=== PATIENT | female | born 1940 | race Caucasian/White ===

== ENCOUNTER 2017-03-15 21:57 | Emergency (ER) | payer MEDICARE, OTHER ==
[~2017-03-15] VITALS: Ht 157.5 cm; Wt 59.0 kg
[2017-03-15 22:34] VITALS: BP_SYST 195
[2017-03-16 02:44] VITALS: BP_SYST 168
== END 2017-03-16 02:44 | disposition home or self-care (01) ==
LOC: SED 21:57
DX: I83.93 Asymptomatic varicose veins of bilateral lower extremities (principal); Z88.0 Allergy status to penicillin; I10 Essential (primary) hypertension
CPT/HCPCS: 93971; 99284

== ENCOUNTER 2018-06-06 17:00 | Inpatient (IN) | payer MEDICARE ==
[~2018-06-06] VITALS: Ht 157.5 cm; Wt 63.0 kg
[2018-06-06 17:08] VITALS: BP_SYST 160; BP_SYST 196
--- NOTE | 2018-06-06 17:11 | NUR ---
Patient to ER bed 08 to gown for evaluation. Side rails up. Report given to AMERICO Yanez
--- NOTE | 2018-06-06 17:15 | NUR ---
Pt AAOx4 BIB BLS c/o generalized weakness x 1 hour accompanying tingling to L hand/QUEEN/N. Skin pink dry and warm, speaking in full sentences. No other injuries/complaints per pt/noted. Will continue to monitor.
--- NOTE | 2018-06-06 17:28 | NUR ---
ER Dr. Rapp at bedside examining patient.
[2018-06-06] MEDS ORDERED: cloNIDine HCL 0.1 MG TABLET PO ONE (17:45)
[2018-06-06] MEDS ORDERED: NACL 0.9% 1,000 ML IV ONE ×2 (17:45)
[2018-06-06 18:05] LABS: BILIRUBIN,URINE NEGATIVE (NEGATIVE); CLARITY/URINE CLEAR (CLEAR); COLOR,URINE YELLOW (YELLOW); GLUCOSE,URINE NEGATIVE (NEGATIVE); KETONES,URINE NEGATIVE (NEGATIVE); LEUKOCYTE ESTERASE ,URINE 1+ (NEGATIVE); NITRITE, URINE POSITIVE (NEGATIVE); PROTEIN URINE TRACE (NEGATIVE); UROBILINOGEN,URINE 0.2 (0.2-1.0)
[2018-06-06 18:06] LABS: BLOOD, URINE TRACE (NEGATIVE)
[2018-06-06 18:12] LABS: BACTERIA,URINE MODERATE /HPF (None Seen); RBC,URINE 0-3 /HPF (0-3)
--- NOTE | 2018-06-06 18:20 | NUR ---
PT resting comfortably in bed with no signs of distress
[2018-06-06] MEDS ORDERED: LEVOFLOXACIN 500 MG/D5W 100 ML IV ONE (18:30)
[2018-06-06 18:41] LABS: ANION GAP 8 (5-15); CALCIUM 9.2 mg/dL (8.4-11.0); CHLORIDE 102 mmol/L (98-107); CREATININE 1.19 mg/dL (0.55-1.30); GLUCOSE 101 mg/dL (70-99); POTASSIUM 3.6 mmol/L (3.5-5.1); SODIUM SERUM 138 mmol/L (136-145); UREA NITROGEN, BLOOD 20 mg/dL (8-21)
[2018-06-06 18:50] LABS: ALANINE AMINOTRANSFERASE 20 U/L (12-78); ALBUMIN 3.8 g/dL (3.4-4.8); ASPARTATE AMINOTRANSFERASE 22 U/L (10-37); TOTAL BILIRUBIN 0.6 mg/dL (0.0-1.0)
[2018-06-06 18:54] LABS: BASOPHILS # (AUTO) 0.2 K/uL (0.0-0.2); BASOPHILS % (AUTO) 2.1 % (0.0-2.0); EOSINOPHILS # (AUTO) 0.2 K/uL (0.0-0.4); EOSINOPHILS % (AUTO) 2.1 % (0.0-4.0); HEMATOCRIT 47.3 % (36-48); HEMOGLOBIN 15.9 g/dL (12.0-16.0); LYMPHOCYTES # (AUTO) 1.3 K/uL (1.0-5.5); LYMPHOCYTES % (AUTO) 11.9 % (20.5-51.5); MEAN CORPUSCULAR HEMOGLOBIN 33 pg (27-31); MEAN CORPUSCULAR HGB CONC 34 % (32-36); MEAN CORPUSCULAR VOLUME 97 fL (79.0-98.0); MONOCYTES # (AUTO) 0.7 K/uL (0.0-1.0); NEUTROPHILS # (AUTO) 8.9 K/uL (1.8-7.7); NEUTROPHILS % (AUTO) 77.9 % (40.0-70.0); PLATELET COUNT (AUTO) 353 K/uL (130-430); RED BLOOD CELL COUNT(AUTO) 4.86 MIL/uL (4.2-6.2); RED CELL DISTRIBUTION WIDTH 14.1 % (9.0-15.0); WHITE BLOOD COUNT (AUTO) 11.3 K/uL (4.8-10.8)
[2018-06-06] MEDS ORDERED: METOPROLOL TARTRATE 5 MG/5 ML VIAL IVP ONE ×2 (19:15→19:30)
[2018-06-06] MEDS ORDERED: NITROGLYCERIN 1 INCH (GM) OINT. TP ONE (19:15)
[2018-06-06] MEDS ORDERED: KETOROLAC TROMETHAMINE 15 MG VIAL IVP ONE (19:15)
[2018-06-06] MEDS ORDERED: cloNIDine HCL 0.2 MG TABLET PO PRN (19:30)
--- NOTE | 2018-06-06 19:37 | NUR ---
Pt assisted to restroom with steady gait.
[2018-06-06 19:50] VITALS: BP_SYST 161
--- NOTE | 2018-06-06 19:50 | NUR ---
ADMISSION NOTE Received patient from ER via gurney. Patient admitted with diagnosis of NSTEMI. Patient is awake, alert, oriented X 4. Patient oriented to hospital room, call light, toileting, pain management and safety-teach back done. Patient informed that AMERICO Rubio will be primary nurse and that their room number is 103B. Personal belongings checked and Belongings List documented. Call light within reach.
--- NOTE | 2018-06-06 20:04 | NUR ---
Patient will be admitted to [facility]. Admitted to Telemetry unit. Will go to room 103B. Belongings list completed. Summary report printed. Report will be given at bedside.
--- NOTE | 2018-06-06 20:44 | NUR ---
CONSULT DR. 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 REASON FOR CONSULT: TEIN DR. PEARCE REQUEST THE CONSULT [facility] MONITOR PHONE NUMBER: [phone] I CALLED [employer] TO FIND OUT HOW IS PSYCHIATRIC SECRETARY I SPOKE WITH [employer]. SHE SAID DR. FALL PSYCHIATRIC SECRETARY ERNA.
--- NOTE | 2018-06-06 21:55 | NUR ---
Initial RN notes Pt AAOx4, pt eating sandwich at this time. Pt denies any pain. BP 158/77 HR 71. No acute distress noted. Pt ambulated to the bathroom with quad cane, steady gait, denies any dizziness or sob. Call light/items within reach. Will continue to monitor.
[2018-06-06 22:06] VITALS: BP_SYST 158
[2018-06-06] MEDS ORDERED: ACETAMINOPHEN 325 MG TABLET PO PRN (23:00)
--- NOTE | 2018-06-06 23:10 | NUR ---
Dr. Mcmanus here to see pt.
[2018-06-06] MEDS ORDERED: ONDANSETRON HCL 4 MG/2 ML VIAL IVP PRN (23:15)
[2018-06-06] MEDS ORDERED: TEMAZEPAM 15 MG CAPSULE PO PRN (23:15)
[2018-06-06] MEDS ORDERED: ENOXAPARIN SODIUM 60 MG/0.6 ML SYRINGE SUBCUT SCH (23:30)
[2018-06-06] MEDS ORDERED: CARVEDILOL 12.5 MG TABLET (COREG) PO SCH (23:30)
[2018-06-07] VITALS (7 sets, daily range): BP systolic 145–165
--- NOTE | 2018-06-07 00:15 | NUR ---
Refused med Pt asleep, easily arousable. Pt refused BP med and Lovenox x 1 order.
--- NOTE | 2018-06-07 01:10 | NUR ---
Ambulated to bathroom Pt awake, called to use the bathroom. Pt assisted and used the bathroom. VSS. IVF completed, IV saline locked R. FA 20G. Call light within reach. Safety measures in place. Bed alarm on. To monitor. Addendum: 06/07/18 at 0120 by Joanne Pacheco RN Pt states L. arm weakness feels better now.
--- NOTE | 2018-06-07 03:45 | NUR ---
Pt refused bed alarm on Pt encouraged to call for assistance out of bed. Pt verbalized understanding. Call light within reach.
--- NOTE | 2018-06-07 06:40 | NUR ---
Closing notes/Refused CXR Pt alert, awake, no acute distress noted. Pt upset about the blood draw this am and how it hurts so much. Pt refused the Chest Xray this am. Pt states she just wants to go home. IV lock R. forearm 20G on forearm. Call light within reach. Bed low, locked side rail x2 up. To endorse to AM nurse.
--- NOTE | 2018-06-07 07:45 | NUR ---
opening note patient is resting in bed eating her breakfast, A&Ox4, assessment completed, IV line patent and intact, educated gate person light system and on blood pressure management, patient verbalized understanding, patient is refusing morning medications after education on medication uses and benefits, will follow up to see if she changes her mind, no other needs at this time, bed at the lowest position, two side rails up, call light within reach, fall/aspiration/allergy precautions in place.
[2018-06-07 07:51] LABS: INR 1.1 (0.8-1.2)
[2018-06-07 07:54] LABS: ANION GAP 10 (5-15); BASOPHILS # (AUTO) 0.1 K/uL (0.0-0.2); BASOPHILS % (AUTO) 1.3 % (0.0-2.0); CALCIUM 8.3 mg/dL (8.4-11.0); CHLORIDE 105 mmol/L (98-107); CREATININE 0.94 mg/dL (0.55-1.30); EOSINOPHILS # (AUTO) 0.1 K/uL (0.0-0.4); EOSINOPHILS % (AUTO) 0.8 % (0.0-4.0); GLUCOSE 89 mg/dL (70-99); HEMATOCRIT 45.7 % (36-48); HEMOGLOBIN 14.6 g/dL (12.0-16.0); LYMPHOCYTES # (AUTO) 0.9 K/uL (1.0-5.5); LYMPHOCYTES % (AUTO) 10.8 % (20.5-51.5); MEAN CORPUSCULAR HEMOGLOBIN 31 pg (27-31); MEAN CORPUSCULAR HGB CONC 32 % (32-36); MEAN CORPUSCULAR VOLUME 98 fL (79.0-98.0); MONOCYTES # (AUTO) 0.5 K/uL (0.0-1.0); MONOCYTES % (AUTO) 6.3 % (1.7-9.3); NEUTROPHILS # (AUTO) 6.8 K/uL (1.8-7.7); NEUTROPHILS % (AUTO) 80.8 % (40.0-70.0); PLATELET COUNT (AUTO) 410 K/uL (130-430); POTASSIUM 3.8 mmol/L (3.5-5.1); RED BLOOD CELL COUNT(AUTO) 4.65 MIL/uL (4.2-6.2); RED CELL DISTRIBUTION WIDTH 13.9 % (9.0-15.0); SODIUM SERUM 139 mmol/L (136-145); UREA NITROGEN, BLOOD 15 mg/dL (8-21); WHITE BLOOD COUNT (AUTO) 8.4 K/uL (4.8-10.8)
[2018-06-07 08:10] LABS: ALANINE AMINOTRANSFERASE 18 U/L (12-78); ASPARTATE AMINOTRANSFERASE 22 U/L (10-37); FREE T4 (FREE THYROXINE) 1.1 ng/dl (0.8-1.5); THYROID STIMULATING HORMONE 1.47 uIu/mL (0.36-3.74); TOTAL BILIRUBIN 0.6 mg/dL (0.0-1.0)
--- NOTE | 2018-06-07 08:31 | NUR ---
Dr Teresa landeros in regards to troponin. Addendum: 06/07/18 at 0834 by Laury Moran RN Dr Moore [id number] informed of troponin, no orders at this time.
[2018-06-07] MEDS: CARVEDILOL 12.5 MG TABLET (COREG) PO SCH ×2 (09:00→20:44)
[2018-06-07] MEDS ORDERED: ASPIRIN 81 MG TABLET(ECOTRIN) PO SCH (09:00)
[2018-06-07] MEDS: ENOXAPARIN SODIUM 60 MG/0.6 ML SYRINGE SUBCUT SCH ×2 (09:00→20:44)
[2018-06-07] MEDS ORDERED: NITROFURANTOIN MONOHYD/M-CRYST 100 MG CAPSULE PO SCH (09:00)
--- NOTE | 2018-06-07 09:05 | NUR ---
Dr Teresa king assessed patient in the room, made aware of the patient's refusal for medications and chest x-ray, patient said yes to doing an echo.
--- NOTE | 2018-06-07 09:15 | NUR ---
echocardiogram in patient room.
--- NOTE | 2018-06-07 09:40 | NUR ---
Patient refused EKG informed Dr. Moore at nursing station.
--- NOTE | 2018-06-07 11:10 | NUR ---
patient is resting in bed, visitor present at the bedside, patient states that she wants to be discharge since she is refusing all tests and medications, I asked her if she would like to wait for the primary physician to see her first, patient states that she does not want to wait for him, I educated her on AMA and patient states that she did not want to sign it in fear that her insurance will not pay for her hospital stay, patient states she will call her insurance. bed at the lowest position, two side rails up, cane within reach, fall and aspiration precautions in place.
[2018-06-07 13:10] LABS: CHOLESTEROL 210 mg/dL (<200); HDL CHOLESTEROL 64 mg/dL (>55); TRIGLYCERIDES 59 mg/dL (30-150)
[2018-06-07 13:11] LABS: LDL CHOLESTEROL 128 mg/dL (<100)
--- NOTE | 2018-06-07 14:12 | NUR ---
Patient SW patient extensively today. During initial rounds, pt verbalized that she wants to go home and that nothing is wrong with her. I informed her that the MD will do rounds today and evaluate and examine her. Dr Moore saw the patient and immediately after, patient stated that she wants to go home again, that we cannot keep her hostage and that the hospital only wants the insurance money. I explained to the patient that we do not keep patient againts their will, that she can leave anytime after signing the AMA form. Patient called her insurance and after finding out from the insurance will not pay her stay , patient decided to wait for the doctor. Addendum: 06/07/18 at 1420 by Karime Yu RN will not PAY HER STAY IF SHE SIGNS THE AMA FORM.
[2018-06-07] MEDS ORDERED: ATORVASTATIN 20 MG TABLET PO ONE (14:15)
--- NOTE | 2018-06-07 14:51 | NUR ---
RN Rounds patient resting in bed, awake, speaking with Crop Pest Control Specialist, Awa, at bedside. Continuing to monitor the patient.
--- NOTE | 2018-06-07 15:15 | NUR ---
Case management spoke to case management about patient, CM talked to patient about her stay and plan of care and potential plans for when she gets discharged.
--- NOTE | 2018-06-07 15:33 | NUR ---
refused medication patient is sitting on the edge of the bed, educated on the scheduled lipitor uses and benefits, patient refused medication, no other needs at this time, bed at the lowest position, two side rails up, cane within reach, call light within reach, bed close to nurse station, fall and aspiration precautions in place.
--- NOTE | 2018-06-07 15:52 | NUR ---
DC Planning: Updated Shannen at [facility] IPA the dcp for tomorrow either dc to home with HH safety eval vs. transfer to net work if need intervention. Troponin positive x2. EF 70%, pt. still c/o some numbness to her left arm, elevated sbp 150-160's.
--- NOTE | 2018-06-07 16:48 | NUR ---
I WAS ASKED BY CHARGE NURSE MADINA TO CALL [facility], RE: PT AGREED TO TRANSFER TO [facility] AFTER BEING CONVINCED BY PRIMARY MD DR PEARCE FOR N STEMI. SPOKE TO RANDALL WHO WILL ARRANGE AND FIND BED FOR THE PT TODAY.
--- NOTE | 2018-06-07 17:20 | NUR ---
rounds patient is resting in bed, patient stating that she is still going to refuse medications and radiology test despite education on the benefits of it, no needs at this time, bed at the lowest position, two side rails up, cane within reach, call light within reach, patient refuses bed alarm despite educating her on the use for it, bed close to nurse station, fall/aspiration/allergy precautions in place.
--- NOTE | 2018-06-07 18:40 | NUR ---
closing note patient is resting in bed and eating her dinner, IV line flushed per patient request, all needs met for this shift, will endorse report to noc shift nurse, bed at the lowest position, two side rails up, call light within reach, fall and aspiration precautions in place, bed close to nurse station, patient refused bed alarm despite education on benefits.
[2018-06-07] MEDS ORDERED: ASPIRIN 81 MG TABLET(ECOTRIN) PO ONE (18:45)
--- NOTE | 2018-06-07 19:30 | NUR ---
Initial Notes Received handoff report from offgoing nurse at the bedside. Patient is resting comfortably in bed with eyes closed, sleeping. No SOB, no acute distress, no signs of pain or facial grimacing. Breathing is even and unlabored with visible chest rise and fall noted. Bed is locked, in the lowest position, 2x side rails up, bed alarm is on. Call light is within reach. Will continue with plan of care.
--- NOTE | 2018-06-07 20:00 | NUR ---
Notified that the patient will be transferred to [facility] [id number] in [place], Room 357, under care of Dr Ware. [facility] will cone picker the patient at 22:00.
--- NOTE | 2018-06-07 20:20 | NUR ---
Called Kevin Michael () and notified him of the patient being transferred to [facility].
--- NOTE | 2018-06-07 20:30 | NUR ---
Notified the patient of being transferred to [facility]. Patient verbalized understanding and agreed to transfer.
--- NOTE | 2018-06-07 20:45 | NUR ---
Patient refuses all due medication at this time, except for Aspirin. 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 Explained risk and benefits of not taking medication, patient still refuses at this time.
--- NOTE | 2018-06-07 21:00 | NUR ---
Called and gave report to Sukumar at [facility] [phone]. No further questions from Sukumar at this time.
--- NOTE | 2018-06-07 22:43 | NUR ---
Patient has been transferred with [facility] via [facility].
[2018-06-08] MEDS ORDERED: ATORVASTATIN 20 MG TABLET PO SCH (09:00)
== END 2018-06-07 22:44 | disposition short-term general hospital (02) | DRG 281 ==
LOC: SED 17:00 → STU 19:27 → SMU 19:55 → STU 20:02
PROVIDERS: ADMIT Internal Medicine; ATTEND Internal Medicine
DX: I21.4 Non-ST elevation (NSTEMI) myocardial infarction (principal); N39.0 Urinary tract infection, site not specified; I10 Essential (primary) hypertension; I49.9 Cardiac arrhythmia, unspecified; E78.5 Hyperlipidemia, unspecified; F17.210 Nicotine dependence, cigarettes, uncomplicated; E83.51 Hypocalcemia; Z96.642 Presence of left artificial hip joint; Z88.0 Allergy status to penicillin; Z87.442 Personal history of urinary calculi; Z91.19 Patient's noncompliance with other medical treatment and regimen
CPT/HCPCS: 36415; 80053; 80061; 81000-TC; 83735-TC; 83880; 84439; 84443-TC; 84484; 85025; 85379; 85610-TC; 87086; 87186-TC; 93005; 93306; 96361; 96365; 99285; J1650; J1956